=== PATIENT | male | born 1970 | race Caucasian/White ===

== ENCOUNTER 2018-12-23 09:47 | Day surgery (SDC) | payer OTHER ==
[~2018-12-23] VITALS: Ht 175.3 cm; Wt 93.2 kg
[~2018-12-23 09:47] MED LIST: FISH1000 PO; GLUCTAB6 PO; LIPI10TA PO; NS 1,000 ML IV ONE
[2018-12-23] MEDS ORDERED: PROPOFOL 200 MG/20 ML VIAL As Ordered ONE (10:45)
--- NOTE | 2018-12-23 11:27 | ROOR ---
Patient Name: Bertrand Briseno Procedure Date: 12/23/2018 11:13 AM Date of : 1970 Age: 48 Room: [facility] Gender: Male Note Status: Finalized Procedure: Colonoscopy Indications: Screening for colorectal malignant neoplasm Providers: Raza Cruz Jr, MD Referring MD: Marco Snell MD Requesting Provider: Medicines: Propofol per Anesthesia Complications: No immediate complications. Procedure: Pre-Anesthesia Assessment: - Prior to the procedure, a History and Physical was performed, and patient medications and allergies were reviewed. The patient is competent. The risks and benefits of the procedure and the sedation options and risks were discussed with the patient. All questions were answered and informed consent was obtained. Patient identification and proposed procedure were verified by the physician and the nurse in the pre-procedure area and in the procedure room. Mental Status Examination: alert and oriented. Airway Examination: normal oropharyngeal airway and neck mobility. Respiratory Examination: clear to auscultation. CV Examination: normal. ASA Grade Assessment: II - A patient with mild systemic disease. After reviewing the risks and benefits, the patient was deemed in satisfactory condition to undergo the procedure. The anesthesia plan was to use moderate sedation / analgesia (conscious sedation). Immediately prior to administration of medications, the patient was re-assessed for adequacy to receive sedatives. The heart rate, respiratory rate, oxygen saturations, blood pressure, adequacy of pulmonary ventilation, and response to care were monitored throughout the procedure. The physical status of the patient was re-assessed after the procedure. The Colonoscope was introduced through the anus and advanced to the cecum, identified by appendiceal orifice and ileocecal valve. The colonoscopy was performed without difficulty. The patient tolerated the procedure well. The quality of the bowel preparation was adequate. Findings: The rectum, recto-sigmoid colon, descending colon, transverse colon, ascending colon, cecum, appendiceal orifice and ileocecal valve appeared normal. Many small and large-mouthed diverticula were found in the sigmoid colon. Impression: - The rectum, recto-sigmoid colon, descending colon, transverse colon, ascending colon, cecum, appendiceal orifice and ileocecal valve are normal. - Diverticulosis in the sigmoid colon. - No specimens collected. Recommendation: - Discharge patient to home (ambulatory). - Repeat colonoscopy in 10 years for screening purposes. Raza Cruz MD Raza Cruz Jr, MD 12/23/2018 11:27:04 AM Electronically signed by Raza Cruz Jr, MD Number of Addenda: 0 Note Initiated On: 12/23/2018 11:13 AM Estimated Blood Loss: Estimated blood loss: none.
[2018-12-23 11:55] VITALS: BP 152/84
== END 2018-12-23 12:10 | disposition home or self-care (01) ==
LOC: M OPP 09:47
PROVIDERS: ATTEND Surgery
DX: Z12.11 Encounter for screening for malignant neoplasm of colon (principal); K57.30 Diverticulosis of large intestine without perforation or abscess without bleeding; Z79.899 Other long term (current) drug therapy

== ENCOUNTER → 2020-07-11 | Outpatient (CLI) | payer OTHER ==
[~2020-07-11] MED LIST changes: -NS 1,000 ML IV ONE
--- NOTE | 2020-07-11 08:11 | REP ---
INDICATION: INCREASED LFT'S COMPARISON: None. TECHNIQUE: Real time lugo scale ultrasound examination using curved array transducer. FINDINGS: Liver is minimally hyperechoic and should be correlated with laboratory assessment. No focal hepatic lesions are identified. Pancreas is incompletely evaluated but visualized portions appear normal. Gallbladder and biliary system are unremarkable. Common bile duct measures 3.3 mm diameter. Right kidney is normal in reniform shape without hydronephrosis and measures 12.9 x 5.9 x 5.8 cm. No ascites in the visualized right upper quadrant. IMPRESSION: 1. Very minimal hepatosteatosis cannot be excluded. No focal hepatic lesion. 2. Otherwise normal right upper quadrant ultrasound. <Electronically signed by Jamshid Wheatley > 07/11/20 [id number]
== END ==
LOC: M RAD 07:12
PROVIDERS: ATTEND Family Medicine
DX: R94.5 Abnormal results of liver function studies (principal)

== ENCOUNTER 2022-09-08 13:09 | Day surgery (SDC) | payer OTHER ==
[~2022-09-08] VITALS: Ht 175.3 cm; Wt 101.2 kg
[~2022-09-08 13:09] MED LIST changes: +ATOR1TAB19 PO; +CelecoXIB 400 MG CAP PO ONE; +FLUO20CA22 PO; -GLUCTAB6 PO; +GLUCTAB7 PO; +OMEG10002 PO; +ceFAZolin SOD 2 GM in IV 1 EA IV ONE
[2022-09-08] MEDS ORDERED: LR 1,000 ML IV SCH ×2 (13:25→19:00)
[2022-09-08] MEDS ORDERED: propofoL 200 MG/20 ML VIAL As Ordered ONE (13:26)
[2022-09-08] MEDS ORDERED: ROCURONIUM BROMIDE 50MG/5ML VIAL As Ordered ONE ×2 (13:26→17:25)
[2022-09-08] MEDS ORDERED: METOCLOPRAMIDE INJ 10MG/2ML VIAL As Ordered ONE (13:26)
[2022-09-08] MEDS ORDERED: LIDOCAINE 2% 100MG/5ML SDV (FOR ANES.) As Ordered ONE (13:26)
[2022-09-08] MEDS ORDERED: fentaNYL 100 MCG/2 ML INJECTION As Ordered ONE ×2 (13:27→17:41)
[2022-09-08] MEDS ORDERED: ONDANSETRON 4MG 2ML VIAL As Ordered ONE (13:27)
[2022-09-08] MEDS ORDERED: MIDAZOLAM INJ 2MG/2ML VIAL As Ordered ONE (13:28)
[2022-09-08] MEDS ORDERED: LIDOCAINE 1% SDV 30ML VIAL As Ordered ONE (16:27)
[2022-09-08] MEDS ORDERED: BUPIVACAINE HCL 0.25% 30ML VIAL As Ordered ONE (16:28)
[2022-09-08] MEDS ORDERED: ACETAMINOPHEN 1000MG 100ML IV BAG As Ordered ONE (17:02)
[2022-09-08] MEDS ORDERED: ePHEDrine SULFATE 25 MG/5 ML(5MG/ML) SYRINGE As Ordered ONE (17:09)
[2022-09-08] MEDS ORDERED: SUGAMMADEX SODIUM 500 MG/5 ML VIAL (BRIDION) As Ordered ONE (18:35)
[2022-09-08] MEDS ORDERED: KETOROLAC 60MG 2ML VIAL As Ordered ONE (18:35)
[2022-09-08] MEDS ORDERED: ONDANSETRON 4MG 2ML VIAL IV PRN (19:00)
[2022-09-08] MEDS ORDERED: oxyCODONE 5MG TAB PO PRN (19:00)
[2022-09-08] MEDS ORDERED: fentaNYL 100 MCG/2 ML INJECTION IV PRN (19:00)
[2022-09-08] MEDS ORDERED: HYDROMORPHONE HCL 0.5 MG/ 0.5 ML SYRINGE IV PRN (19:00)
[2022-09-08] MEDS ORDERED: NORCO, ANEXSIA 5/325MG TABLET (HYDROcodone/ACETAMINOPHEN) PO PRN ×2 (19:25)
[2022-09-08 21:00] VITALS: BP 145/80
[2022-09-09] MEDS ORDERED: KETOROLAC 30 MG/ML 1ML VIAL IV SCH (01:00)
== END 2022-09-08 21:05 | disposition home or self-care (01) ==
LOC: M SDC 13:09
PROVIDERS: ATTEND Surgery
DX: K40.90 Unilateral inguinal hernia, without obstruction or gangrene, not specified as recurrent (principal); E11.9 Type 2 diabetes mellitus without complications; E78.5 Hyperlipidemia, unspecified; F41.9 Anxiety disorder, unspecified; Z79.899 Other long term (current) drug therapy
CPT/HCPCS: 49650; C1781; J0131; J0690; J1100; J1885; J2250; J2405; J2765; J3010; S0020; S2900

== ENCOUNTER → 2024-11-03 | Outpatient (REF) | payer OTHER ==
[~2024-11-03] MED LIST changes: -CelecoXIB 400 MG CAP PO ONE; +FLUO-365 PO; -FLUO20CA22 PO; -ceFAZolin SOD 2 GM in IV 1 EA IV ONE
== END ==
LOC: M LAB REF 13:18
PROVIDERS: ATTEND Family Medicine
DX: E07.9 Disorder of thyroid, unspecified (principal)